=== PATIENT | male | born 2005 | race Caucasian/White ===

== ENCOUNTER 2024-03-02 16:57 | Inpatient (IN) | payer OTHER ==
[~2024-03-02] VITALS: Ht 167.6 cm; Wt 49.9 kg
[2024-03-02] MEDS ORDERED: Midazolam HCl 1MG / ML 2ML Vial INH ONE (18:45)
[2024-03-02 19:55] LABS: BASOPHILS ABSOLUTE AUTO 0.06 K/mm3 (0.00-0.23); BASOPHILS PERCENT AUTO 0 % (0-2); EOSINOPHILS PERCENT AUTO 0 % (0-6); Hematocrit 19.7 % (37.0-53.0); IMMATURE GRAN ABSOLUTE AUTO 0.08 K/mm3 (0.00-0.10); IMMATURE GRAN PERCENT AUTO 1 % (0-1); LYMPHOCYTES ABSOLUTE AUTO 0.77 K/mm3 (0.84-5.20); LYMPHOCYTES PERCENT AUTO 5 % (21-46); MONOCYTES ABSOLUTE AUTO 1.21 K/mm3 (0.16-1.47); MONOCYTES PERCENT AUTO 8 % (4-13); Mean Corpuscular HGB 13.8 pg (26.0-34.0); Mean Corpuscular HGB Conc 24.4 g/dL (31.5-36.5); Mean Corpuscular Volume 56 fL (80-100); Mean Platelet Volume 9.3 fL (9.1-12.4); NEUTROPHILS ABSOLUTE AUTO 14.11 K/mm3 (1.96-9.15); NEUTROPHILS PERCENT AUTO 87 % (41-73); NRBC ABSOLUTE 0.15 K/mm3 (0.00-0.02); NRBC Auto 0.9 /100 WBC (0.0-0.2); Platelet Count 399 K/mm3 (150-400); RDW Coefficient Variation 20.8 % (11.7-14.2); RDW Standard Deviation 39.8 fL (35.1-46.3); Red Blood Cell Count 3.49 M/mm3 (4.30-5.90); White Blood Cell Count 16.23 K/mm3 (4.00-11.30)
[2024-03-02 19:59] LABS: Hemoglobin 4.8 g/dL (13.5-17.5)
[2024-03-02 20:11] LABS: Albumin, Blood 2.2 g/dL (3.4-5.0); Albumin/Globulin Ratio 0.6 (0.8-1.8); Bilirubin, Total 0.4 mg/dL (0.1-1.0); Bun/Creatinine Ratio 42.6 (12.0-20.0); Calcium, Blood 8.3 mg/dL (8.5-10.1); Creatinine, Blood 0.61 mg/dL (0.60-1.20); Globulin, Blood 3.5 g/dL (2.2-4.0); Potassium, Blood 4.3 mmol/L (3.5-5.5); Total Protein, Blood 5.7 g/dL (6.4-8.2)
[2024-03-02] MEDS ORDERED: Midazolam HCl 1MG / ML 2ML Vial IV ONE (20:20)
[2024-03-02] MEDS ORDERED: NS 1,000 ML IV ONE (21:09)
[2024-03-02 21:24] LABS: Percent Saturation 2.6 % (20.0-50.0)
[2024-03-02] MEDS ORDERED: Sod Phosphate/Sod Biphosphate 132 ML BTL PR ONE (21:25)
[2024-03-02] MEDS ORDERED: Ondansetron HCl 2 MG / ML 2ML Vial IV PRN (22:15)
[2024-03-02] MEDS ORDERED: Acetaminophen 325 MG TABLET PO PRN (22:20)
[2024-03-02] MEDS ORDERED: Glycerin Adult Supp 1 EA PR ONE (22:20)
[2024-03-02] MEDS ORDERED: Sod Ferric Gluc Complx/Sucrose 125 MG in NS 100 ML IV SCH (23:00)
[2024-03-02 23:03] LABS: International Normalized Ratio 1.08; Prothrombin Time Results 11.5 Sec (9.7-11.5)
[2024-03-02 23:59] VITALS: BP 122/85
[2024-03-03] VITALS (7 sets, daily range): BP systolic 107–126; BP diastolic 69–98
[2024-03-03] MEDS ORDERED: Prozac20 MG PO (00:07)
--- NOTE | 2024-03-03 00:50 | NUR ---
0020- FIRST UNIT PRBC COMPLETE.
[2024-03-03 05:52] LABS: BASOPHILS ABSOLUTE AUTO 0.04 K/mm3 (0.00-0.23); BASOPHILS PERCENT AUTO 0 % (0-2); EOSINOPHILS ABSOLUTE AUTO 0.01 K/mm3 (0.00-0.68); EOSINOPHILS PERCENT AUTO 0 % (0-6); Hemoglobin 7.5 g/dL (13.5-17.5); IMMATURE GRAN ABSOLUTE AUTO 0.05 K/mm3 (0.00-0.10); IMMATURE GRAN PERCENT AUTO 0 % (0-1); LYMPHOCYTES ABSOLUTE AUTO 1.13 K/mm3 (0.84-5.20); LYMPHOCYTES PERCENT AUTO 10 % (21-46); MONOCYTES ABSOLUTE AUTO 1.72 K/mm3 (0.16-1.47); MONOCYTES PERCENT AUTO 15 % (4-13); NEUTROPHILS ABSOLUTE AUTO 8.81 K/mm3 (1.96-9.15); NEUTROPHILS PERCENT AUTO 75 % (41-73); NRBC ABSOLUTE 0.15 K/mm3 (0.00-0.02); NRBC Auto 1.3 /100 WBC (0.0-0.2); Platelet Count 291 K/mm3 (150-400); White Blood Cell Count 11.76 K/mm3 (4.00-11.30)
--- NOTE | 2024-03-03 05:58 | NUR ---
SUMMARY- PT ARRIVED TO ROOM IN NO DISTRESS. PT HAS UNIT OF PRBC RUNNING. PT RECIEVED TOTAL 2 UNITS THIS SHIFT. PT TOLERATED WELL. PT HAS REFUSED SCD'S. PT HAS HAD 2 LARGE INCONTINENT BM'S. PT REPORTS FEELING BETTER. PT HAD REFUSED SUPPOSITORY AND ENEMA. PT LUE REMAINS SWOLLEN AND COOL TO THE TOUCH. PULSES PRESENT. PT DENIES SOB. PT HAS SLEPT SOME. PT HAS BEEN TO CT FOR HIS LUE THIS AM. AWAITNING LAB RESULTS. PT REMAINS ON CLEAR LIQUID DIET. TOLERATING PO. NO N/V NOTED. PT ALSO HAS HAD INCONTINENT VOIDS IN BRIEF. PT MOTHER PRESENT AND STAYED THE NIGHT. CALL LIGHT IN REACH AND MOTHER EDUCATED QUARTER LINING SMOOTHER LIGHT.
[2024-03-03 06:10] LABS: Albumin/Globulin Ratio 0.6 (0.8-1.8); Bun/Creatinine Ratio 33.6 (12.0-20.0); Calcium, Blood 8.3 mg/dL (8.5-10.1); Creatinine, Blood 0.65 mg/dL (0.60-1.20); Globulin, Blood 3.2 g/dL (2.2-4.0); Hematocrit 26.5 % (37.0-53.0); Magnesium, Blood 2.3 mg/dL (1.6-2.4); Mean Corpuscular HGB 18.9 pg (26.0-34.0); Mean Corpuscular HGB Conc 28.3 g/dL (31.5-36.5); Mean Corpuscular Volume 67 fL (80-100); Potassium, Blood 4.4 mmol/L (3.5-5.5); Red Blood Cell Count 3.97 M/mm3 (4.30-5.90); Total Protein, Blood 5.2 g/dL (6.4-8.2)
[2024-03-03] MEDS ORDERED: Bisacodyl 10 MG Supp PR PRN (06:20)
[2024-03-03] MEDS ORDERED: Bisacodyl 5 MG TabEC PO PRN (06:20)
[2024-03-03] MEDS ORDERED: Docusate Sodium 100 MG Cap PO SCH (09:00)
[2024-03-03] MEDS ORDERED: Sennosides 8.6 MG Tab PO SCH (09:00)
[2024-03-03] MEDS ORDERED: Lactobacil 2-S.Thermo-Bifido 1 1 Cap PO SCH (09:00)
[2024-03-03] MEDS ORDERED: Peg/Electrolytes 4,000 ML BTL PO SCH (09:00)
[2024-03-03 09:06] LABS: Hemoglobin 7.7 g/dL (13.5-17.5)
[2024-03-03] MEDS ORDERED: [UNRECOGNIZED DRUG - OTHER] PO SCH (12:00)
[2024-03-03] MEDS ORDERED: FLUOXETINE HCL 20 MG/5 ML PO SCH (12:00)
[2024-03-03 12:39] LABS: IMMATURE RETIC FRACTION 42.6 % (2.3-16.0); RETIC HGB EQUIVALENT 14.2 pg (28.20-36.60); RETICULOCYTE ABSOLUTE 0.0778 M/mm3 (0.0200-0.1100); RETICULOCYTE COUNT PERCENT 1.83 % (0.50-2.50)
[2024-03-03 13:04] LABS: Anti-Xa UFH, PHA Monitoring <0.10 IU/mL; Fibrinogen 437 mg/dL (170-430); International Normalized Ratio 1.05; Prothrombin Time Results 11.2 Sec (9.7-11.5)
[2024-03-03] MEDS ORDERED: Heparin Sodium,Porcine/0.5 NS 500 ML IV SCH (13:15)
[2024-03-03] MEDS ORDERED: Dose Adjust by Pharmacy XX STA ×2 (13:17→20:53)
--- NOTE | 2024-03-03 16:18 | NUR ---
SHIFT SUMMARY CONTINUING BOWEL CARE. ENCOURAGING GOLYTELY TOLERATED. OCCASSIONAL DRY HEAVES WITH NO EMESIS. ZOFRAN PRN. X2 BMS TODAY. ATTENDS IN PLACE. PT WILL OCCASSIONALY SIT IN CHAIR AND GET UP TO THE BATHROOM. MOTHER AT BEDSIDE FOR SUPPORT. HEPARIN GTT STARTED PER ORDERS R/T BILAT PEs. PT DENIES SOB AND LUNGS CLEAR. CONT BIOX IN PLACE. ECHO COMPLETE. CALL LIGHT WITHIN REACH. PLAN TO POSSIBLY HAVE A RECTAL BIOPSY IN 1-2 DAYS DEPENDING ON ABD DISTENTION + ANEMIA.
[2024-03-03 17:22] LABS: Hematocrit 27.6 % (37.0-53.0); Hemoglobin 7.9 g/dL (13.5-17.5)
[2024-03-04 02:53] LABS: BASOPHILS ABSOLUTE AUTO 0.05 K/mm3 (0.00-0.23); BASOPHILS PERCENT AUTO 0 % (0-2); EOSINOPHILS ABSOLUTE AUTO 0.02 K/mm3 (0.00-0.68); EOSINOPHILS PERCENT AUTO 0 % (0-6); Hematocrit 25.7 % (37.0-53.0); Hemoglobin 7.3 g/dL (13.5-17.5); IMMATURE GRAN ABSOLUTE AUTO 0.12 K/mm3 (0.00-0.10); IMMATURE GRAN PERCENT AUTO 1 % (0-1); LYMPHOCYTES ABSOLUTE AUTO 1.88 K/mm3 (0.84-5.20); LYMPHOCYTES PERCENT AUTO 14 % (21-46); MONOCYTES ABSOLUTE AUTO 1.53 K/mm3 (0.16-1.47); MONOCYTES PERCENT AUTO 11 % (4-13); Mean Corpuscular HGB 18.9 pg (26.0-34.0); Mean Corpuscular HGB Conc 28.4 g/dL (31.5-36.5); Mean Corpuscular Volume 66 fL (80-100); Mean Platelet Volume 9.4 fL (9.1-12.4); NEUTROPHILS ABSOLUTE AUTO 9.93 K/mm3 (1.96-9.15); NEUTROPHILS PERCENT AUTO 73 % (41-73); NRBC ABSOLUTE 0.15 K/mm3 (0.00-0.02); NRBC Auto 1.1 /100 WBC (0.0-0.2); Platelet Count 374 K/mm3 (150-400); RDW Coefficient Variation 32.1 % (11.7-14.2); RDW Standard Deviation 67.8 fL (35.1-46.3); Red Blood Cell Count 3.87 M/mm3 (4.30-5.90); White Blood Cell Count 13.53 K/mm3 (4.00-11.30)
[2024-03-04 02:54] VITALS: BP 121/69
[2024-03-04 03:15] LABS: Calcium, Blood 8.1 mg/dL (8.5-10.1); Creatinine, Blood 0.76 mg/dL (0.60-1.20); Potassium, Blood 4.4 mmol/L (3.5-5.5)
[2024-03-04] MEDS ORDERED: Clarify Drug Order XX ONE (03:25)
--- NOTE | 2024-03-04 04:54 | NUR ---
SHIFT SUMMARY PT RESTED FOR MOST OF SHIFT. HAD 1 BM THIS SHIFT. PT SLOWLY DRINKING THE GOLYTELY. ABD IS STILL SEVERELY DISTENDED, TENDER TO PALP. VSS. NO OTHER CONCERNS AT THIS TIME, CALL LIGHT WITHIN REACH
[2024-03-04 07:40] VITALS: BP 108/75
[2024-03-04] MEDS ORDERED: Lactulose 20 GM/30 ML UDC PO SCH (09:00)
[2024-03-04 14:00] VITALS: BP 113/73
--- NOTE | 2024-03-04 15:00 | NUR ---
SUMMARY PT ABD STILL SEVERELY DISTENDED, BUT FEELS SOFTER ON PALPATION THAN YESTERDAY. CONTINUING BOWEL CARE PER ORDERS. PT WITH MULTIPLE THICK LOOSE STOOLS. CHANGING ATTENDS PRN. NO NAUSEA OR DRY HEAVES NOTED TODAY. HEPARIN GTT INFUSING AND MANAGED PER PHARMACY. CONT BIOX IN PLACE. NO TELE EVENTS AND REMAINS SR IN THE 80S. PLAN IS FOR PT TO BE NPO AT 0400 ON 03/05/24 FOR A RECTAL BIOPSY/FECAL DISIMPACTION UNDER ANESTHESIA. VSS. MOM AT BEDSIDE AND HELPS WITH CARE. CALL LIGHT WITHIN REACH.
[2024-03-04 15:44] LABS: Hematocrit 28.6 % (37.0-53.0); Hemoglobin 7.9 g/dL (13.5-17.5)
[2024-03-04] MEDS ORDERED: Dose Adjust by Pharmacy XX STA (16:15)
[2024-03-04 19:13] VITALS: BP 119/74
[2024-03-05] VITALS (21 sets, daily range): BP systolic 90–135; BP diastolic 54–94
--- NOTE | 2024-03-05 04:17 | NUR ---
HEPARIN STOPPED PER ORDER. HEPARIN STOPPED AT 0400 THIS AM PER ORDER FROM DR. PATEL. THIS RN NOTIFIED PHARMACIST CELIA HALL, AND HE ORDERED THE 0500 HEPARIN TESTING BE D/C. ORDER D/C'D.
[2024-03-05 05:39] LABS: BASOPHILS ABSOLUTE AUTO 0.06 K/mm3 (0.00-0.23); BASOPHILS PERCENT AUTO 1 % (0-2); EOSINOPHILS ABSOLUTE AUTO 0.02 K/mm3 (0.00-0.68); EOSINOPHILS PERCENT AUTO 0 % (0-6); Hemoglobin 7.5 g/dL (13.5-17.5); IMMATURE GRAN ABSOLUTE AUTO 0.12 K/mm3 (0.00-0.10); IMMATURE GRAN PERCENT AUTO 1 % (0-1); LYMPHOCYTES ABSOLUTE AUTO 1.93 K/mm3 (0.84-5.20); LYMPHOCYTES PERCENT AUTO 18 % (21-46); MONOCYTES ABSOLUTE AUTO 1.28 K/mm3 (0.16-1.47); MONOCYTES PERCENT AUTO 12 % (4-13); NEUTROPHILS ABSOLUTE AUTO 7.56 K/mm3 (1.96-9.15); NEUTROPHILS PERCENT AUTO 69 % (41-73); NRBC ABSOLUTE 0.03 K/mm3 (0.00-0.02); NRBC Auto 0.3 /100 WBC (0.0-0.2); Platelet Count 436 K/mm3 (150-400); White Blood Cell Count 10.97 K/mm3 (4.00-11.30)
[2024-03-05 06:02] LABS: Hematocrit 27.5 % (37.0-53.0); Mean Corpuscular HGB 18.7 pg (26.0-34.0); Mean Corpuscular HGB Conc 27.3 g/dL (31.5-36.5); Mean Corpuscular Volume 69 fL (80-100); Red Blood Cell Count 4.01 M/mm3 (4.30-5.90)
[2024-03-05 06:05] LABS: Bun/Creatinine Ratio 23.7 (12.0-20.0); Calcium, Blood 8.1 mg/dL (8.5-10.1); Creatinine, Blood 0.72 mg/dL (0.60-1.20); Potassium, Blood 3.6 mmol/L (3.5-5.5)
[2024-03-05] MEDS ORDERED: Lactated Ringer's 1,000 ML IV SCH (07:10)
[2024-03-05] MEDS ORDERED: Bupivacaine 0.5% HCl 5 MG/ML 30MLVIAL ONE (07:16)
--- NOTE | 2024-03-05 07:46 | NUR ---
SHIFT SUMMARY NOC. PT HAS HX OF AUTISM. A/O TO SELF/FAMILY, MOTHER AT BEDSIDE T/O THE NIGHT. PT'S HEPARIN INFUSED UNTIL [address] PATEL. PT NPO SINCE 0000. ABDOMEN SEVERELY DISTENDED, PT MEDICATED FOR NAUSEA X1 THIS SHIFT. PT INCONTINENT OF URINE AND BOWEL MOVEMENTS THIS SHIFT. PT ON TELE AND NO EVENTS REPORTED. CALL LIGHT IN REACH. PT LEFT THE FLOOR AT APPROX 0715 TO GO TO DAY SURGERY WITH MOM AT SIDE.
[2024-03-05] MEDS ORDERED: Midazolam HCl 1MG / ML 2ML Vial ONE (08:06)
[2024-03-05] MEDS ORDERED: propofoL 20 ML IV ONE (08:09)
[2024-03-05] MEDS ORDERED: Lidocaine HCl 2% 20 ML MDV ONE (08:09)
[2024-03-05] MEDS ORDERED: FentaNYL Citrate 50 MCG/ML 2 ML Injection ONE (08:09)
--- NOTE | 2024-03-05 08:15 | NUR ---
PT TO OR AT ABOUT 0326
[2024-03-05] MEDS ORDERED: Dexamethasone Sod Phos 10 MG/ML 1ML VIAL ONE (09:11)
[2024-03-05] MEDS ORDERED: Ondansetron HCl 2 MG / ML 2ML Vial ONE (09:11)
[2024-03-05] MEDS ORDERED: Ketorolac Tromethamine 30mg Vial ONE (10:24)
--- NOTE | 2024-03-05 11:43 | NUR ---
POST OP: REPORT RECEIVED FROM CLEANING AND WASHING EQUIPMENT OPERATOR, PT TO UNIT AT 1040. PT IS ALERT AND OBEYS COMMANDS BUT DOES NOT RESPOND TO QUESTIONS AT THIS TIME. PT HAS HX OF AUTISUM. VSS. SPO2 STABLE ON RA, CONTINUIOUS BI OX APPLIED AND TELE BOX VERIFIED, SR 71. PT TURNED AND PLACED IN ATTENDS. PT MOM AT BEDSIDE. BED ALARM ON FOR SAFETY, WILL CTM.
[2024-03-05 12:36] LABS: Hematocrit 22.5 % (37.0-53.0); Hemoglobin 6.2 g/dL (13.5-17.5)
[2024-03-05] MEDS ORDERED: Cholecalciferol 1000 Unit Tablet (=25MCG) PO SCH (13:00)
[2024-03-05] MEDS ORDERED: Diazepam 5 MG / ML 2ML SYR IV PRN (14:10)
[2024-03-05] MEDS ORDERED: NS 500 ML IV SCH (14:35)
--- NOTE | 2024-03-05 15:28 | NUR ---
HEPARIN INFUSION RESTARTED AT 1520 18 ML/HR PER ORDER. VERIFIED WITH PHARMACY AND SWAPNIL GARCIA RN
--- NOTE | 2024-03-05 18:28 | NUR ---
SUMMARY: PT IS POD0 RECTAL BIOPSY AND FECAL DISIMPACTION. VSS, MENTATION APPROPRIATE FOR PT BASELINE AUTISUM. ALERT AND SAYING SOME WORDS. HAS NOT ALWAYS ANSWERED QUESTIONS, BUT OBEYS COMMANDS. BLOOD IS TRANSFUSING AT THIS TIME, PT IS TOLERATING WELL. POWERGLIDE PLACED TO CAROLINE. HEPARIN CONTINUES TO INFUSE TO PIV , PHARMACY MANAGING. PT HAS VOIDED POST OP, AND AMBULATED IN ROOM. NO BM POST OP. PT MOM REPORTS ABD LOOKS MUCH LESS DISTENTED AND ABD IS SOFT TO PALPATION. PT HAS DENIED PAIN AND HAS SLEPT THIS AFTERNOON WHILE BLOOD TRANSFUSED. NO ACUTE SAFETY CONCERNS. PT MOM ATTENTIVE AT BEDSIDE.
--- NOTE | 2024-03-05 18:54 | NUR ---
1 UNIT PRBC'S NOW INFUSED. PT TOLERATED WELL
[2024-03-06 00:23] VITALS: BP 118/84
--- NOTE | 2024-03-06 02:07 | NUR ---
PT WITH LOW H/H-SEE LABS.PT WITH STABLE BP,BUT TACHY UP TO 140 @ TIMES WHEN AMBULATING.RESTING AT 80"S CURRENTLY.I CALLED DR BOSS AND ADVISED OF ABOVE.LABS TO BE DRAWN THIS AM AND WILL FOLLOW UP NEEDED.
[2024-03-06 04:00] LABS: BASOPHILS ABSOLUTE AUTO 0.04 K/mm3 (0.00-0.23); BASOPHILS PERCENT AUTO 0 % (0-2); EOSINOPHILS ABSOLUTE AUTO 0.02 K/mm3 (0.00-0.68); EOSINOPHILS PERCENT AUTO 0 % (0-6); Hematocrit 30.8 % (37.0-53.0); Hemoglobin 8.8 g/dL (13.5-17.5); IMMATURE GRAN ABSOLUTE AUTO 0.11 K/mm3 (0.00-0.10); IMMATURE GRAN PERCENT AUTO 1 % (0-1); LYMPHOCYTES ABSOLUTE AUTO 1.75 K/mm3 (0.84-5.20); LYMPHOCYTES PERCENT AUTO 15 % (21-46); MONOCYTES ABSOLUTE AUTO 0.85 K/mm3 (0.16-1.47); MONOCYTES PERCENT AUTO 7 % (4-13); Mean Corpuscular HGB 20.3 pg (26.0-34.0); Mean Corpuscular HGB Conc 28.6 g/dL (31.5-36.5); Mean Corpuscular Volume 71 fL (80-100); Mean Platelet Volume 9.2 fL (9.1-12.4); NEUTROPHILS ABSOLUTE AUTO 9.33 K/mm3 (1.96-9.15); NEUTROPHILS PERCENT AUTO 77 % (41-73); NRBC ABSOLUTE 0.03 K/mm3 (0.00-0.02); NRBC Auto 0.2 /100 WBC (0.0-0.2); Platelet Count 461 K/mm3 (150-400); RDW Coefficient Variation 32.7 % (11.7-14.2); RDW Standard Deviation 74.4 fL (35.1-46.3); Red Blood Cell Count 4.33 M/mm3 (4.30-5.90)
[2024-03-06 04:12] VITALS: BP 117/70
[2024-03-06 04:18] LABS: Albumin, Blood 1.8 g/dL (3.4-5.0); Anion Gap 8 mmol/L (3-11); Blood Urea Nitrogen 9 mg/dL (8-24); Bun/Creatinine Ratio 16.9 (12.0-20.0); CO2, Blood 26 mmol/L (21-32); Calcium, Blood 8.1 mg/dL (8.5-10.1); Chloride, Blood 109 mmol/L (98-108); Creatinine, Blood 0.53 mg/dL (0.60-1.20); Glomerular Filtration Rate 146 (60-); Glucose, Blood 66 mg/dL (70-99); Phosphorus, Blood 3.2 mg/dL (2.5-4.9); Potassium, Blood 4.2 mmol/L (3.5-5.5); Sodium, Blood 139 mmol/L (136-145)
--- NOTE | 2024-03-06 05:50 | NUR ---
SHIFT SUMMARY PT IS A/O TO SELF, HX OF SEVERE AUTISM. PT DID HAVE A LOOSE DARK BROWN BM THIS SHIFT, INCONTINENT W/ ATTENDS. MOTHER VERY INVOLVED IN CARE. TELE IN PLACE, PT'S RESTING HR 50'S AT START OF SHIFT, NOW IN 70'S TO 80'S SR AT REST. PT TACHYCARDIC W/ EXERTION, UP TO 140'S W/ AMBULATION. DR. BOSS NOTIFIED, SEE PREVIOUS NOTE. PT DENIES CP, SOB. BP STABLE. O2 SATS >92% ON RA, NO DYSPNEA NOTED. PUPILS LARGE BUT EQUALLY DILATED, NO CHANGE IN MENTATION FROM BASELINE ACCORDING TO MOM, WILL NOTIFY ONCOMING DAY SHIFT RN TO CONSULT W/ . PT ABLE TO REST MOST OF NIGHT. MOM STATES IMPROVMENT IN ABD DISTENTION, ABD SOFT TO PALPATION. NO RECTAL BLEEDING NOTED. MOM STAYING IN ROOM AND ASSISTING PT W/ CARE. IMPROVEMENT IN H&H LEVELS NOTED, HEP DRIP RUNNING ORDERED. CALL LIGHT IN REACH.
[2024-03-06 07:37] VITALS: BP 116/69
[2024-03-06] MEDS ORDERED: NS 250 ML IV PRN (08:00)
[2024-03-06] MEDS ORDERED: Multivitamins-Minerals Liquid 15 ML Oral Syringe PO SCH (09:00)
[2024-03-06 14:46] VITALS: BP 110/67
--- NOTE | 2024-03-06 16:02 | NUR ---
SHIFT SUMMARY POD 1 EXAM UNDER ANESTHESIA WITH FECAL DISIMPACTION PT HAS REMAIN VERY TIRED TODAY. INC OF BLADDER AND BOWEL WITH TIREDNESS. HAS BEEN UP AND AMBULATING IN ROOM TO BATHROOM AT TIMES. ADVANCED DIET FOR DINNER. PT ANSWERS QUESTIONS APPROPRIATLY. CONTINUES TO HAVE BOWEL MOVEMENTS. HEPARIN CONTINUES TO INFUSE PER EMAR. DENIES PAIN WHEN ASKED.
[2024-03-06 20:19] VITALS: BP 115/71
[2024-03-07 02:58] VITALS: BP 121/81
[2024-03-07 03:09] LABS: BASOPHILS ABSOLUTE AUTO 0.07 K/mm3 (0.00-0.23); BASOPHILS PERCENT AUTO 1 % (0-2); EOSINOPHILS ABSOLUTE AUTO 0.07 K/mm3 (0.00-0.68); EOSINOPHILS PERCENT AUTO 1 % (0-6); Hematocrit 30.8 % (37.0-53.0); Hemoglobin 8.8 g/dL (13.5-17.5); IMMATURE GRAN ABSOLUTE AUTO 0.13 K/mm3 (0.00-0.10); IMMATURE GRAN PERCENT AUTO 1 % (0-1); LYMPHOCYTES ABSOLUTE AUTO 1.79 K/mm3 (0.84-5.20); LYMPHOCYTES PERCENT AUTO 17 % (21-46); MONOCYTES ABSOLUTE AUTO 0.78 K/mm3 (0.16-1.47); MONOCYTES PERCENT AUTO 8 % (4-13); Mean Corpuscular HGB 20.6 pg (26.0-34.0); Mean Corpuscular HGB Conc 28.6 g/dL (31.5-36.5); Mean Corpuscular Volume 72 fL (80-100); Mean Platelet Volume 8.7 fL (9.1-12.4); NEUTROPHILS ABSOLUTE AUTO 7.57 K/mm3 (1.96-9.15); NEUTROPHILS PERCENT AUTO 73 % (41-73); Platelet Count 495 K/mm3 (150-400); RDW Coefficient Variation 33.5 % (11.7-14.2); RDW Standard Deviation 78.7 fL (35.1-46.3); Red Blood Cell Count 4.27 M/mm3 (4.30-5.90); White Blood Cell Count 10.41 K/mm3 (4.00-11.30)
[2024-03-07 03:24] LABS: Albumin, Blood 1.8 g/dL (3.4-5.0); Anion Gap 7 mmol/L (3-11); Blood Urea Nitrogen 7 mg/dL (8-24); Bun/Creatinine Ratio 12.5 (12.0-20.0); CO2, Blood 28 mmol/L (21-32); Calcium, Blood 7.7 mg/dL (8.5-10.1); Chloride, Blood 111 mmol/L (98-108); Creatinine, Blood 0.56 mg/dL (0.60-1.20); Glomerular Filtration Rate 144 (60-); Glucose, Blood 87 mg/dL (70-99); Phosphorus, Blood 2.3 mg/dL (2.5-4.9); Potassium, Blood 3.9 mmol/L (3.5-5.5); Sodium, Blood 142 mmol/L (136-145)
--- NOTE | 2024-03-07 04:16 | NUR ---
SHIFT SUMMARY PT HAS RESTED MOST OF SHIFT, DID HAVE INCONTINENT BM EARLIER IN SHIFT AND VOID IN BATHROOM. MOM LESS INVOLVED IN CARE THIS SHIFT. VSS. CONT BIOX IN PLACE, O2 SATS >92% ON RA. TELE IN PLACE, NO ACUTE CARDIAC EVENTS NOTED THIS SHIFT. PT COMMUNICATING W/ ONE WORD RESPONSES AND IS COOPERATIVE W/ CARE. MOTHER MAKING PT'S NEEDS KNOWN TO STAFF AND STAYED IN ROOM ALL NIGHT. CALL LIGHT IN REACH.
[2024-03-07 07:30] VITALS: BP 117/85
[2024-03-07] MEDS ORDERED: Ergocalciferol 50000 Intn'l Units PO SCH (09:00)
[2024-03-07] MEDS ORDERED: Cholecalciferol 1000 Unit Tablet (=25MCG) PO SCH (12:00)
[2024-03-07 14:31] LABS: VITAMIN D,1,25-DIHYDROXY 18.9 pg/mL (19.9-79.3)
[2024-03-07] MEDS ORDERED: Rivaroxaban 10 MG Tab PO SCH (16:30)
[2024-03-07 16:56] VITALS: BP 104/79
--- NOTE | 2024-03-07 17:21 | NUR ---
SHIFT SUMMARY PT CONTINUES TO DENY PAIN, TOLEATING REGULAR DIET WELL. HAS HAD MULTIPLE INC BOWEL MOVEMENTS. REMAINS BROWN AND THICK. HEPARIN DRIP STOPPED THIS EVENING, TRANSITIONING TO XARELTO. MOTHER AT BEDSIDE DURING SHIFT. LOOKING FORWARD TO DISCHARGING HOME SOON.
--- NOTE | 2024-03-07 20:00 | NUR ---
NOTIFIED CHARLOTTE COOPER OF PT'S COLACE BEING HELD DUE TO PT REFUSAL/INABILITY TO SWALLOW PILLS. ORDER TO D/C PO COLACE RECIEVED. NO FURTHER ORDERS.
[2024-03-07 20:48] VITALS: BP 121/82
[2024-03-08 04:40] VITALS: BP 126/84
[2024-03-08 04:52] LABS: BASOPHILS PERCENT AUTO 1 % (0-2); EOSINOPHILS ABSOLUTE AUTO 0.13 K/mm3 (0.00-0.68); EOSINOPHILS PERCENT AUTO 1 % (0-6); Hemoglobin 8.7 g/dL (13.5-17.5); IMMATURE GRAN ABSOLUTE AUTO 0.13 K/mm3 (0.00-0.10); IMMATURE GRAN PERCENT AUTO 1 % (0-1); LYMPHOCYTES ABSOLUTE AUTO 1.67 K/mm3 (0.84-5.20); LYMPHOCYTES PERCENT AUTO 11 % (21-46); MONOCYTES ABSOLUTE AUTO 1.04 K/mm3 (0.16-1.47); MONOCYTES PERCENT AUTO 7 % (4-13); Mean Platelet Volume 8.9 fL (9.1-12.4); NEUTROPHILS ABSOLUTE AUTO 11.88 K/mm3 (1.96-9.15); NEUTROPHILS PERCENT AUTO 79 % (41-73); Platelet Count 544 K/mm3 (150-400); White Blood Cell Count 14.95 K/mm3 (4.00-11.30)
[2024-03-08 04:57] LABS: Hematocrit 30.8 % (37.0-53.0); Mean Corpuscular HGB 20.7 pg (26.0-34.0); Mean Corpuscular HGB Conc 28.2 g/dL (31.5-36.5); Mean Corpuscular Volume 73 fL (80-100); Red Blood Cell Count 4.21 M/mm3 (4.30-5.90)
--- NOTE | 2024-03-08 05:20 | NUR ---
SHIFT SUMMARY MOM IN ROOM, STAYED THE NIGHT, ASSISTED W/ PT CARE. PT AMBULATING STANDBY TO BR, HAVING INC/CONT VOIDS AND INC LOOSE BMS. NO INCREASE IN ABD DISTENTION NOTED. PT DENIES ABD PAIN. CONT BIOX IN PLACE, O2 SATS <92% ON RA. TELE IN PLACE. PT TACHY IN THE 130'S WHILE AMBULATING BUT 70'S-90'S AT REST. VSS. PT DENIES CHEST PAIN/PRESSURE. PT CURRENTLY RESTING IN BED, CALL LIGHT IN REACH, MOM IN ROOM. NO ACUTE EVENTS THIS SHIFT.
[2024-03-08 05:25] LABS: Albumin, Blood 1.8 g/dL (3.4-5.0); Anion Gap 9 mmol/L (3-11); Blood Urea Nitrogen 8 mg/dL (8-24); Bun/Creatinine Ratio 14.9 (12.0-20.0); CO2, Blood 25 mmol/L (21-32); Calcium, Blood 7.9 mg/dL (8.5-10.1); Chloride, Blood 109 mmol/L (98-108); Creatinine, Blood 0.54 mg/dL (0.60-1.20); Glomerular Filtration Rate 145 (60-); Glucose, Blood 93 mg/dL (70-99); Phosphorus, Blood 1.8 mg/dL (2.5-4.9); Sodium, Blood 139 mmol/L (136-145)
[2024-03-08 07:27] VITALS: BP 121/76
[2024-03-08] MEDS ORDERED: LACT10SY PO (14:03)
[2024-03-08] MEDS ORDERED: SENNA LAXATIVE8.6 MG PO (14:04)
[2024-03-08] MEDS ORDERED: XARELTO20 MG PO (14:04)
[2024-03-08] MEDS ORDERED: FERSU300 PO (14:05)
[2024-03-08] MEDS ORDERED: VITAMIN D5000 UNIT PO (14:06)
--- NOTE | 2024-03-08 14:52 | NUR ---
DISCHARGE PT LEFT VIA WHEELCHAIR. ALL BELONGINGS WITH MOM AND PATIENT. ALL INSTRUCTIONS GONE OVER WITH MOTHER, PRESCRIPTIONS SENT TO [facility] AT MOTHERS REQUEST. WENT OVER MEDICATION SCHEDULE AT LENGTH WITH MOTHER. SHE HAS PLANS TO FOLLOW UP WITH PCP UPON DISCHARGE. KELLI CONTINUED TO HAVE FREQUENT BOWEL MOVEMENTS AND TOLERATED DIET WELL. NO NAUSEA. TOLERATED REMOVAL OF IV AND POWERGLIDE WELL. PASSING FLATUS.
== END 2024-03-08 14:32 | disposition home or self-care (01) | DRG 811 ==
LOC: ER 16:57 → SURS 22:14 → MEDS 22:14 → SURS 23:28
PROVIDERS: Family Medicine; Physician Assistant; Surgery; ADMIT Student in an Organized Health Care Education/Training Program
PROC: 30233N1 Transfusion of Nonautologous Red Blood Cells into Peripheral Vein, Percutaneous Approach (ICD-10-PCS; principal; 2024-03-02)
DX: D50.9 Iron deficiency anemia, unspecified (principal); I26.93 Single subsegmental thrombotic pulmonary embolism without acute cor pulmonale; F84.0 Autistic disorder; K59.39 Other megacolon; I82.622 Acute embolism and thrombosis of deep veins of left upper extremity; I47.10 Supraventricular tachycardia, unspecified; E55.9 Vitamin D deficiency, unspecified; I08.1 Rheumatic disorders of both mitral and tricuspid valves; Z79.899 Other long term (current) drug therapy; K63.89 Other specified diseases of intestine
CPT/HCPCS: 36415; 36430; 71046; 71260; 74177; 80048; 80053; 80069; 82306; 82607; 82652; 82746; 83540; 83550; 83605; 83735; 83880; 85014; 85018; 85025; 85045; 85379; 85384; 85520; 85610; 85730; 86850; 86900; 86901; 86923; 87040; 88305; 93005; 93010; 93306; 93971; 94762; 96374-59; 99285-25; A9270; J1100; J1644; J1885; J2250; J2405; J2704; J2916; J3010; J3360; J7030; J7040; J7120; P9016; Q9967

== ENCOUNTER 2024-04-20 15:12 | Inpatient (IN) | payer OTHER ==
[~2024-04-20] VITALS: Ht 165.1 cm; Wt 56.5 kg
[~2024-04-20 15:12] MED LIST: FERSU300 PO; FLUOXETINE 20 MG/5 ML PO; LACT10SY PO; SENNA LAXATIVE8.6 MG PO; VITAMIN D5000 UNIT PO; XARELTO20 MG PO
[2024-04-20 15:54] LABS: BASOPHILS ABSOLUTE AUTO 0.11 K/mm3 (0.00-0.23); BASOPHILS PERCENT AUTO 1 % (0-2); EOSINOPHILS ABSOLUTE AUTO 0.02 K/mm3 (0.00-0.68); EOSINOPHILS PERCENT AUTO 0 % (0-6); Hemoglobin 7.6 g/dL (13.5-17.5); IMMATURE GRAN ABSOLUTE AUTO 0.02 K/mm3 (0.00-0.10); IMMATURE GRAN PERCENT AUTO 0 % (0-1); LYMPHOCYTES ABSOLUTE AUTO 1.48 K/mm3 (0.84-5.20); LYMPHOCYTES PERCENT AUTO 17 % (21-46); MONOCYTES ABSOLUTE AUTO 0.97 K/mm3 (0.16-1.47); MONOCYTES PERCENT AUTO 11 % (4-13); Mean Corpuscular HGB 24.7 pg (26.0-34.0); Mean Corpuscular HGB Conc 30.4 g/dL (31.5-36.5); Mean Corpuscular Volume 81 fL (80-100); Mean Platelet Volume 8.5 fL (9.1-12.4); NEUTROPHILS ABSOLUTE AUTO 6.37 K/mm3 (1.96-9.15); NEUTROPHILS PERCENT AUTO 71 % (41-73); NRBC ABSOLUTE 0.02 K/mm3 (0.00-0.02); NRBC Auto 0.2 /100 WBC (0.0-0.2); Platelet Count 829 K/mm3 (150-400); RDW Coefficient Variation 17.9 % (11.7-14.2); RDW Standard Deviation 45.6 fL (35.1-46.3); Red Blood Cell Count 3.08 M/mm3 (4.30-5.90); White Blood Cell Count 8.97 K/mm3 (4.00-11.30)
[2024-04-20 16:15] LABS: Albumin, Blood 2.6 g/dL (3.4-5.0); Albumin/Globulin Ratio 0.8 (0.8-1.8); Bilirubin, Total 0.3 mg/dL (0.1-1.0); Bun/Creatinine Ratio 35.8 (12.0-20.0); Calcium, Blood 8.3 mg/dL (8.5-10.1); Creatinine, Blood 0.7 mg/dL (0.60-1.20); Globulin, Blood 3.2 g/dL (2.2-4.0); Potassium, Blood 4.2 mmol/L (3.5-5.5); Total Protein, Blood 5.8 g/dL (6.4-8.2)
[2024-04-20] MEDS ORDERED: Lactated Ringer's 1,000 ML IV ONE (18:00)
[2024-04-20] MEDS ORDERED: Ondansetron HCl 2 MG / ML 2ML Vial IV ONE ×2 (18:00→23:35)
[2024-04-20 19:14] LABS: Influenza A, PCR NEGATIVE (NEGATIVE); Influenza B, PCR NEGATIVE (NEGATIVE); Resp Syncytial Virus, PCR NEGATIVE (NEGATIVE); SARS-Cov-2 (COVID-19) PCR, MMC NEGATIVE (NEGATIVE)
[2024-04-20] MEDS ORDERED: Morphine Sulfate 4 MG/1 ML Injection IV ONE (23:35)
[2024-04-20] MEDS ORDERED: Ondansetron HCl 2 MG / ML 2ML Vial ONE (23:49)
[2024-04-21] VITALS (10 sets, daily range): BP systolic 105–129; BP diastolic 77–97
[2024-04-21] MEDS ORDERED: ASCO500 PO (04:55)
[2024-04-21] MEDS ORDERED: Metoclopramide HCl 5MG / ML 2ML Vial IV PRN (05:30)
[2024-04-21] MEDS ORDERED: Ondansetron 4 MG SoluTab SL PRN (05:30)
[2024-04-21] MEDS ORDERED: Acetaminophen 325 MG TABLET PO PRN (05:35)
[2024-04-21] MEDS ORDERED: Morphine Sulfate 4 MG/1 ML Injection IV PRN (05:35)
[2024-04-21] MEDS ORDERED: OxyCODONE HCL 5 MG TAB PO PRN (05:35)
--- NOTE | 2024-04-21 05:41 | NUR ---
SHIFT SUMMARY NOC PT A/O X 2-3. AUTISTIC LOW FUNCTIONING MOSTLY NON-VERBAL, BUT PLEASANT AND COOPERATIVE WITH CARE. MOM BESIDE HELPING TO COMMUNICATE PT NEEDS AND ANSWER QUESTIONS. ADMIT FROM ED WITH DX OF ANEMIA AND N/V. HGB 7.6 AWAITNG AM LABS FOR POSSIBLE TRANSFUSION. PT HAD INC BM THAT IS DARK IN COLOR, BUT PT MOTHER REPORTS THAT PT TAKES IRON SUPPLEMENT DAILY. ED MD CONSULTED DR ALMANZA, BUT AT THIS TIME NOT AWARE OF PLAN DUE TO MEDITECH DOWNTIME. PT ON TELE SINUS RHYTHM IN 90'S. PT ABX IS SEVERELY DISTENDED, BUT MOTHER REPORTS THAT THIS IS BASELINE. PT CURRENTLY RESTING, MOTHER IN ROOM, BED IN LOWEST POSITION, AND CALL LIGHT WITHIN REACH.
[2024-04-21 05:43] LABS: Hematocrit 22.3 % (37.0-53.0); Hemoglobin 6.5 g/dL (13.5-17.5)
[2024-04-21] MEDS ORDERED: NS 500 ML IV SCH (06:05)
--- NOTE | 2024-04-21 06:19 | NUR ---
PT HGB 6.5. HOSPITALIST NOTIFIED AND ORDER FOR CROSS TYPE AND MATCH ANE 1 UNIT PRBC TO BE TRANSFUSED.
[2024-04-21] MEDS ORDERED: FLUoxetine HCL 20 MG CAP PO SCH (09:00)
[2024-04-21] MEDS ORDERED: Lactulose 20 GM/30 ML UDC PO SCH (09:00)
[2024-04-21] MEDS ORDERED: Cholecalciferol 1000 Unit Tablet (=25MCG) PO SCH (09:00)
[2024-04-21 15:32] LABS: Stool Occult Blood Guaiac 1 Pos (Neg)
[2024-04-21 17:21] LABS: Hematocrit 27.6 % (37.0-53.0); Hemoglobin 8.4 g/dL (13.5-17.5)
[2024-04-21] MEDS ORDERED: Sod Ferric Gluc Complx/Sucrose 125 MG in NS 100 ML IV SCH (18:00)
[2024-04-21] MEDS ORDERED: Simethicone 80 MG Chew PO ONE (18:20)
--- NOTE | 2024-04-21 20:13 | NUR ---
SHIFT SUMMARY- SPOKE TO DR CAMACHO SEVERAL TIMES TODAY. THE PT WAS UNABLE TO TAKE HIS PO MEDICATIONS THIS MORNING D/T GI UPSET. HIS MOTHER IS AT THE BEDSIDE MANAGING ALL OF THE PT CARE, THE PT IS AUTISTIC AND DOES NOT DO WELL WITH CHANGE OR PHYSICAL CONTACT. HE SEEMS TO DO WELL WITH HIS MOTHERS CARE. PT ABDOMEN HAS GOTTEN MORE DISTENDED T/O THE DAY. AT THE END OF THE SHIFT AT THE TIME OF BEDSIDE REPORT, THE PT IS CROUCHED OVER THE TRASH CAN IN THE BATHROOM, DRY HEAVING AND HYPERSALIVATING, IV REGLAN WAS GIVEN PRIOR WELL SIMETHICONE WITH NO POSITIVE RESULT EVIDENT. DR CERDA AT THE BEDSIDE SPEAKING TO THE PT MOTHER AT THE TIME OF REPORT. PT HAS HAD FREQUENT INCONTINENT LOOSE DARK COLORED STOOLS POSSITIVE FOR OCCULT BLOOD. AWARE. 1 UNIT PRBC'S TRANSFUSED EARLIER TODAY HGB RECHECK SHOWS 8.4. PT IS PALE IN COMPLECTION AND APPEARS TO FEEL VERY POORLY. NIGHT RN AWARE. MD AWARE. NO NEW ORDERS FOR PT COMFORT AT THIS TIME.
[2024-04-21] MEDS ORDERED: LORazepam 2 MG/ML 1ML Injection IV ONE (23:55)
[2024-04-22 02:39] VITALS: BP 139/99
[2024-04-22 05:34] LABS: Hematocrit 24.8 % (37.0-53.0); Hemoglobin 7.8 g/dL (13.5-17.5); Mean Corpuscular HGB Conc 31.5 g/dL (31.5-36.5); Mean Corpuscular Volume 80 fL (80-100); Mean Platelet Volume 8.9 fL (9.1-12.4); NRBC ABSOLUTE 0.06 K/mm3 (0.00-0.02); NRBC Auto 0.8 /100 WBC (0.0-0.2); Platelet Count 709 K/mm3 (150-400); RDW Coefficient Variation 17.9 % (11.7-14.2); RDW Standard Deviation 47.9 fL (35.1-46.3); Red Blood Cell Count 3.12 M/mm3 (4.30-5.90); White Blood Cell Count 7.25 K/mm3 (4.00-11.30)
--- NOTE | 2024-04-22 06:10 | NUR ---
SHIFT SUMMARY: Pt is admitted for anemia and is a full code. Is alert but not able to really make needs known. Able to answer some yes or no questions. Mother at bedside helping with care and answering questions. ADLs have been a mix of independent to 1p. When asked about pain he would answer no but per his mother some of his actions show he is uncomfortable but does not show distress due to pain. Telly reports 120-150s sinus depending on his activity. NVD through the shift. PRN ativan given x1 this seemed to help the nausea and vomiting the most vers the reglan or the zofran. The loose stools were almost a constant throughout the the shift. But they were in very small amounts. ABD is extremely distended and tight with guarding noted.
[2024-04-22 06:14] LABS: Bun/Creatinine Ratio 39.5 (12.0-20.0); Calcium, Blood 8.1 mg/dL (8.5-10.1); Creatinine, Blood 0.58 mg/dL (0.60-1.20); Potassium, Blood 3.9 mmol/L (3.5-5.5)
[2024-04-22 08:00] VITALS: BP 121/88
--- NOTE | 2024-04-22 08:04 | NUR ---
ASSUMED CARE OF PT- PT IN BED, A LITTLE RESTLESS BUT LESS SO THEN LAST NIGHT. HE STATES HE FEELS A LITTLE BETTER. ABDOMEN IS A LITTLE LESS DISTENDED THAN LAST NIGHT AT END OF SHIFT. PER REPORT THE PT HAD LOOSE STOOL ALL NIGHT AND PASSED QUITE A BIT OF GAS. PT STILL APPEARS PALE WITH A SEVERELY DISTENDED ABDOMEN, NO DRY HEAVING NOTED AT THE TIME OF BEDSIDE REPORT.
[2024-04-22 14:13] LABS: Hematocrit 25.4 % (37.0-53.0); Hemoglobin 7.8 g/dL (13.5-17.5)
[2024-04-22 14:21] LABS: Stool Occult Blood Guaiac 1 Pos (Neg)
[2024-04-22 14:31] LABS: Magnesium, Blood 2.4 mg/dL (1.6-2.4); Phosphorus, Blood 3.4 mg/dL (2.5-4.9)
[2024-04-22 16:15] VITALS: BP 143/105
[2024-04-22 17:20] VITALS: BP 136/101
--- NOTE | 2024-04-22 19:34 | NUR ---
SHIFT SUMMARY- PT IS ALERT TO SELF AND FAMILY. HE IS WILLING AND ABLE TO FOLLOW INSTRUCTIONS. PT WAS CHANGED TO NPO TODAY. GUEST TRAY WAS ORDERED PER JOY. PT IS INDEPEDNENT IN THE ROOM. HIS MOTHER DOES ALL CARE FOR HIM HE REQUIRES. PT HAS A COBRA TRANSFER ORDER WAITING FOR AN AVAILABLE BED AT [facility].
[2024-04-22 19:39] VITALS: BP 139/99
[2024-04-23 03:18] VITALS: BP 117/75
[2024-04-23 03:38] LABS: DEAMIDATED GLIADIN PEPTIDE,IGA <0.72 FLU (0.00-4.99); TISSUE TRANSGLUTAMINAS TTG,IGA <1.02 FLU (0.00-4.99)
--- NOTE | 2024-04-23 06:39 | NUR ---
SHIFT SUMMARY: Pt is admitted for anemia and is a full code. Is alert but not able to really make needs known. Able to answer some yes or no questions. Mother at bedside helping with care and answering questions. ADLs have been a mix of independent to 1p. When asked about pain he would answer no but per his mother some of his actions show he is uncomfortable but does not show distress due to pain. Telly reports junctional in the 90s. Awaiting COBRA transfer to [facility].
[2024-04-23 07:58] VITALS: BP 126/97
[2024-04-23 09:45] LABS: Hematocrit 25.5 % (37.0-53.0); Hemoglobin 7.6 g/dL (13.5-17.5); Mean Corpuscular HGB 24.8 pg (26.0-34.0); Mean Corpuscular HGB Conc 29.8 g/dL (31.5-36.5); Mean Corpuscular Volume 83 fL (80-100); Mean Platelet Volume 8.5 fL (9.1-12.4); Platelet Count 607 K/mm3 (150-400); RDW Coefficient Variation 18.3 % (11.7-14.2); RDW Standard Deviation 51.8 fL (35.1-46.3); Red Blood Cell Count 3.06 M/mm3 (4.30-5.90); White Blood Cell Count 6.06 K/mm3 (4.00-11.30)
[2024-04-23 10:16] LABS: Bun/Creatinine Ratio 36.6 (12.0-20.0); Calcium, Blood 7.9 mg/dL (8.5-10.1); Creatinine, Blood 0.71 mg/dL (0.60-1.20); Potassium, Blood 3.6 mmol/L (3.5-5.5)
[2024-04-23 12:30] LABS: Stool Occult Blood Guaiac 1 Pos (Neg)
[2024-04-23 12:47] LABS: DEAMIDATED GLIADIN PEPTIDE,IGG <0.56 FLU (0.00-4.99); TISSUE TRANSGLUTAMINASE AB,IGG <0.82 FLU (0.00-4.99)
[2024-04-23 13:44] LABS: HOMOCYSTEINE, TOTAL 4 umol/L (0-15)
[2024-04-23 15:36] VITALS: BP 115/73
[2024-04-23 15:41] LABS: CARDIOLIPIN ANTIBODY IGG <10 GPL (<=14); CARDIOLIPIN ANTIBODY IGM <10 MPL (<=12)
[2024-04-23 15:50] LABS: B2GLYCOPROTEIN 1, IGG ANTIBODY <10 SGU (<=20); B2GLYCOPROTEIN 1, IGM ANTIBODY <10 SMU (<=20)
[2024-04-23 16:12] LABS: International Normalized Ratio 1.05; Prothrombin Time Results 11.2 Sec (9.7-11.5)
[2024-04-23 16:49] LABS: SARS-Cov-2 (COVID-19) PCR, MMC NEGATIVE (NEGATIVE)
--- NOTE | 2024-04-23 16:54 | NUR ---
SHIFT SUMMARY: PATIENT A/O TO SELF AND MOM AT BEDSIDE. PATIENT ONLY ANSWER TO YES AND NO QUESTIONS, OTHERWISE HE ALWAYS DEFFERED TO HIS MOM AT BEDSIDE. PATIENT STILL NPO, AWAITING FOR BED AVAILABILITY AT [facility]. PATIENT ABDOMEN FIRM AND DISTENDED. PATIENT REQUESTED MOM TO DO ALL PERSONAL CARE. THIS RN ENCOURAGED PATIENT MOM TO LET STAFF KNOW OR ASKED FOR ANY ASSISTANCE. PATIENT MOM VERBALIZED UNDERSTANDING AND NO FURTHER QUESTIONS AT THIS TIME. PATIENT DENIES PAIN T/O SHIFT. VITAL SIGNS REVIEWED. CALL LIGHT IN REACH.
[2024-04-23 18:25] LABS: ANTITHROMBIN, ENZYM (ACTIVITY) 142 % (76-128)
[2024-04-23 19:37] LABS: PROTEIN C FUNCTIONAL 146 % (83-168)
[2024-04-23 20:13] VITALS: BP 123/85
[2024-04-23 20:20] LABS: PROTEIN S AG FREE 89 % (74-147)
[2024-04-23 23:49] LABS: APC RESISTANCE 4.39 (>=2.00); FACTOR V LEIDEN BY PCR Not Done; FACV REF SPECIMEN Not Done
[2024-04-24] MEDS ORDERED: NS 1,000 ML IV SCH (00:25)
[2024-04-24 01:30] LABS: Hematocrit 25.7 % (37.0-53.0); Hemoglobin 7.7 g/dL (13.5-17.5); Mean Corpuscular HGB 24.9 pg (26.0-34.0); Mean Corpuscular Volume 83 fL (80-100); Mean Platelet Volume 8.5 fL (9.1-12.4); Platelet Count 602 K/mm3 (150-400); RDW Coefficient Variation 18.4 % (11.7-14.2); RDW Standard Deviation 51.9 fL (35.1-46.3); Red Blood Cell Count 3.09 M/mm3 (4.30-5.90); White Blood Cell Count 7.38 K/mm3 (4.00-11.30)
[2024-04-24 01:46] LABS: Bun/Creatinine Ratio 34.9 (12.0-20.0); Calcium, Blood 7.8 mg/dL (8.5-10.1); Creatinine, Blood 0.74 mg/dL (0.60-1.20); Potassium, Blood 3.8 mmol/L (3.5-5.5)
--- NOTE | 2024-04-24 01:52 | NUR ---
[facility] CALLED TO NOTIFY THAT BED STILL NOT AVAILABLE FOR PT TO COBRA TRANSFER UP TO [facility] FOR SURGICAL INTERVENTION ON COLON. UPDATE ON PT GIVEN WITH NO ACUTE CHANGES TO REPORT. HOSPITALIST NOTIFIED OF BED STATUS. PT STILL NPO IN CASE BED OPENS UP AND MAINTENENCE FLUIDS STARTED NS @ 75 ML/HR. H/H ORDERED AND HEMOGLOBIN INCREASED FROM 7.6-7.7.
[2024-04-24 04:51] VITALS: BP 137/89
[2024-04-24 05:00] LABS: Hematocrit 26.8 % (37.0-53.0); Hemoglobin 7.9 g/dL (13.5-17.5)
--- NOTE | 2024-04-24 05:48 | NUR ---
SHIFT SUMMARY NOC PT A/O TO SELF, PLACE, AND MOTHER. PLEASANT AND COOPERATIVE WITH CARE. VSSShy FANG RN FROM [facility] CALLED TO NOTIFY THAT BED STILL NOT AVAILABLE FOR PT COBRA TRANSFER FOR SURGICAL INTERVENTION ON COLON. PT STILL NPO STATUS FOR POSSIBLE TRANSFER IF BED IS AVAILABLE AND IVF NS INFUSING @ 75 ML/HR. PT MOTHER REMAINS BEDSIDE TO COMMUNICATE PT NEEDS. H/H ORDERED AND HGB 7.7 AND 7.9. ON TELE ACCELERATED JUNCTIONAL RHYTHM @ 74 BPM. PT CURRENTLY RESTING WITH BED IN LOWEST POSITION, AND CALL LIGHT WITHIN REACH.
[2024-04-24 08:02] VITALS: BP 122/86
[2024-04-24] MEDS ORDERED: TPN Consult Notification XX ONE (11:25)
[2024-04-24 11:51] LABS: Magnesium, Blood 2.4 mg/dL (1.6-2.4); Phosphorus, Blood 3.4 mg/dL (2.5-4.9)
[2024-04-24 13:15] VITALS: BP 122/86
[2024-04-24 15:07] VITALS: BP 122/86
--- NOTE | 2024-04-24 15:46 | NUR ---
DAY SHIFT SUMMARY: PATIENT A/O TO SELF AND MOM AT BEDSIDE. PATIENT ABDOMEN IS DISTENDED, FIRM AND HYPOACTIVE BT. PATIENT STILL NPO, BUT CAN HAVE SMALL AMT OF ICE CHIPS AND MEDS CRUSHED IN CHOCOLATE PUDDING. PATIENT DENIES CP/PRESSURE, SOB N/V AND ABDOMINAL PAIN. PATIENT HAD 2 INCONTINENT BLK SMALL BM THIS SHIFT. PATIENT STILL ON TELE, JUNCTIONAL RHYTHM IN THE MID 70'S BPM. PATIENT HAS BEEN AMBULATING IN ROOM T/O THE DAY c MOTHER ASSISTANCE. THIS RN NOTIFIED BY CHARGE NURSELIOR THAT PATIENT HAS AVAILABLE BED AT [facility] AND TO CALL FOR REPORT TO [facility] [phone]. AT AROUND 1450 TELEPHONE REPORT GIVEN TO LDIIA GUNTER AT [facility] REGARDING PATIENT CONDITION, LOW FUNCTIONING AUTISM SPECTRUM. MOTHER COMMUNICATE NEEDS AND ANSWER ALL QUESTIONS FOR PATIENT. ALSO INFORMED THAT PATIENT MOTHER WILL BE RIDING IN AMBULANCE. PER LYRIC SHE WILL LET HER CHARGE NURSE KNOW THE PATIENT IS ASSIGN TO SHARED ROOM. PATIENT RESTING IN BED AT THIS TIME. AWAITING FOR RIDES. CALL LIGHT IN REACH.
--- NOTE | 2024-04-24 16:58 | NUR ---
ADDITIONAL NOTE: PATIENT LEFT THE ROOM AT 1457 VIA GURNEY COBRA TRANSFER TO [facility]. COBRA PACKET GIVEN TO [facility] ASSOCIATE. PATIENT D/C c PIV TO [facility]. ALL PATIENT PERSONAL BELONGINGS WERE SENT c THE PATIENT/MOTHER.
[2024-04-24] MEDS ORDERED: Parenteral Electolytes 40 ML,Potassium Phosphate Dibasic 30 MM,Multivitamins 10 ML,ZINC... IV SCH (17:00)
[2024-04-25 15:01] LABS: ANTI-XA QUALITATIVE INTERP Not Performed (Not Present); ANTICOAG MEDICATION NEUTRALIZ Not Performed (Not Performed); DRVVT 1:1 MIX RATIO Not Performed (<=1.20); DRVVT CONFIRMATION RATIO Not Performed (<=1.20); DRVVT SCREEN RATIO 1.12 (<=1.20); HEXAGONAL PHOSPHOLIPID CONFIRM Not Performed s (<=7.9); NEUTRALIZED DRVVT SCREEN RATIO Not Performed (<=1.20); NEUTRALIZED PTT-LA RATIO Not Performed (<=1.20); PROTHROMBIN TIME (PT) 14.7 s (12.0-15.5); PTT-LA RATIO 0.96 (<=1.20); THROMBIN TIME (TT) Not Performed s (<=19.5)
[2024-04-26 13:38] LABS: PROTHROMBIN F2 G20210A VARIANT Negative; PT PCR SPECIMEN Whole Blood
== END 2024-04-24 17:05 | disposition short-term general hospital (02) | DRG 254 ==
LOC: ER 15:12 → MEDS 15:13 → ERHOLD 15:13 → MEDS 04-21 01:40
PROVIDERS: Internal Medicine; Physician Assistant; Student in an Organized Health Care Education/Training Program; ADMIT Family Medicine
PROC: 30233N1 Transfusion of Nonautologous Red Blood Cells into Peripheral Vein, Percutaneous Approach (ICD-10-PCS; principal; 2024-04-21)
DX: Q43.1 Hirschsprung's disease (principal); D62 Acute posthemorrhagic anemia; E55.9 Vitamin D deficiency, unspecified; E86.0 Dehydration; I82.622 Acute embolism and thrombosis of deep veins of left upper extremity; I82.A12 Acute embolism and thrombosis of left axillary vein; I82.B12 Acute embolism and thrombosis of left subclavian vein; I82.C12 Acute embolism and thrombosis of left internal jugular vein; F84.0 Autistic disorder; D75.839 Thrombocytosis, unspecified; Z86.711 Personal history of pulmonary embolism; Z79.01 Long term (current) use of anticoagulants; Z79.899 Other long term (current) drug therapy; I08.1 Rheumatic disorders of both mitral and tricuspid valves
CPT/HCPCS: 0241U; 36415; 36430; 71045; 74018; 74177; 80048; 80053; 81240; 82270; 82272; 83090; 83735; 84100; 85014; 85018; 85025; 85027; 85300; 85303; 85306; 85307; 85610; 85613; 85730; 86146; 86147; 86258; 86364; 86850; 86900; 86901; 86923; 93970; 93971; 96361; 96374-59; 96375; 96376; 99285-25; A9270; G0378; J2060; J2270; J2405; J2765; J2916; J7030; J7040; J7120; P9016; Q9967; U0002